=== PATIENT | male | born 1945 | race Caucasian/White ===

== ENCOUNTER 2017-03-30 13:21 | Outpatient (CLI) | payer MEDICARE ==
--- NOTE | 2017-03-30 16:15 | RAD ---
CHEST TWO VIEWS 03/30/17 PA and lateral views show a normal sized heart and clear lungs, although they are mildly hyperexpande d. No lobar consolidation or effusion was seen. There seems to be a little extra density in the right paratracheal region at about the level of the a helder, though the trachea is in no way deviated. There may have been prior disease here. I cannot see this area well enough to ensure there is no active disease. There does appear to be some apical pleur al thickening on this side. I tip a little more towards longstanding disease than active, however, I feel this area needs to be explored further. A CT of the thorax, with IV contrast if possible, is rec ommended to remove all doubt about this region. IMPRESSION: 1. Mildly hyperexpanded lungs with no acute infiltrates. 2. Increased right paratracheal density of uncertain etiology or significance. Thought to be a l ittle more likely old than new. Elective CT strongly recommended. Code T POS: HOME
== END 2017-03-30 13:22 | disposition home or self-care (01) ==
LOC: BURRAD 13:21
PROVIDERS: ATTEND Family Medicine
DX: J40 Bronchitis, not specified as acute or chronic (principal); R09.1 Pleurisy; J98.4 Other disorders of lung
CPT/HCPCS: 71046

== ENCOUNTER 2017-04-05 07:55 | Outpatient (CLI) | payer MEDICARE ==
--- NOTE | 2017-04-05 20:29 | CT ---
CT OF THE THORAX WITH CONTRAST: Date: 04-05-[address] of the chest was performed for evaluation of an equivocal right paratracheal density seen o n recent plain radiograph. Axial slices were acquired then coronal reconstructions were done. FINDINGS: There is indeed a 4.2 cm right paratracheal mass just a few centimeters above the bifurcation. It has low density areas internally suggesting necrosis and/or fluid. The lower portion of it appears to miguel ve some air trapped in it and it could actually be a cavitary mass. The margins are slightly spiculat ed. There are some apical bullae bilaterally, right more than left. No parenchymal masses were seen e lsewhere. No pleural masses were present. There is probably a small right pleural effusion or thicken ing. There are no lobar consolidations evident. The heart shows no pericardial fluids. Pulmonary artery calcifications are present. There is no signi ficant mediastinal adenopathy. Scans were done into the upper abdomen. A good portion of the liver and all of the spleen was scanned . Both are normal in size. There are several cystic appearing lesions scattered throughout the liver, both lobes. Statistically these are more apt to be benign than not though they are always worrisome given the finding above. There is one lucency in the left lobe of the liver that does enhance somewha t but I would be somewhat suspicious, may be a small hemangioma. Other studies would be needed to ass ess it. The adrenal glands are shown and showed no mass. Upper portions of each kidney were visible a nd appeared normal. IMPRESSION: 1. 4.2 cm right paratracheal mass or cavitary mass just above the level of the bifurcation. Given the appearance and the slightly spiculated margins, this should be considered malignant neoplasm until p roven otherwise. Pulmonary referral required. 2. Coronary arterial sclerosis. 3. Large hiatal hernia. 4. Several cystic lesions seen in the liver. Statistically, these are more likely benign, but one can not be certain given the other pathology present. There is a suspicion of a hemangioma in the left lo be. COMMENT: On slice 49 of the axial slices, there appeared to be a solitary, slightly enlarged lymph node in the fat near the right cardiophrenic angle which may or may not be significant. Findings discussed with Dr. Ferreira at 1554 on 04-05-17. POS: HOME
== END 2017-04-05 07:56 | disposition home or self-care (01) ==
LOC: BURCT 07:55
PROVIDERS: ATTEND Family Medicine
DX: Z01.812 Encounter for preprocedural laboratory examination (principal); R93.8 Abnormal findings on diagnostic imaging of other specified body structures; I25.10 Atherosclerotic heart disease of native coronary artery without angina pectoris; K44.9 Diaphragmatic hernia without obstruction or gangrene; K76.89 Other specified diseases of liver; R22.1 Localized swelling, mass and lump, neck
CPT/HCPCS: 36415; 71270; 82565